=== PATIENT | female | born 1995 | race Caucasian/White ===

== ENCOUNTER 2021-09-30 16:53 | Emergency (ER) | payer OTHER ==
[~2021-09-30] VITALS: Ht 157.5 cm; Wt 57.8 kg
[2021-09-30] MEDS ORDERED: CEFDINIR300 MG PO (17:44)
[2021-09-30] MEDS ORDERED: PREDNISONE20 MG PO (17:44)
== END 2021-09-30 17:46 | disposition home or self-care (01) ==
LOC: FSED 17:41
DX: H66.91 Otitis media, unspecified, right ear (principal)
CPT/HCPCS: 99282

== ENCOUNTER 2021-10-07 11:49 | Emergency (ER) | payer OTHER ==
[~2021-10-07] VITALS: Ht 157.5 cm; Wt 57.6 kg
[~2021-10-07 11:49] MED LIST: CEFDINIR300 MG PO; PREDNISONE20 MG PO
[2021-10-07] MEDS ORDERED: KETOROLAC TROMETHAMINE 60 MG/2 ML VIAL IM ONE (13:15)
[2021-10-07] MEDS ORDERED: KETOROLAC TROMETHAMINE 30 MG/ML VIAL ONE (13:22)
[2021-10-07] MEDS ORDERED: FIORICET 50-301 EACH PO (14:05)
[2021-10-07] MEDS ORDERED: PREDNISONE20 MG PO (14:07)
== END 2021-10-07 14:20 | disposition home or self-care (01) ==
LOC: FSED 12:02
DX: H92.01 Otalgia, right ear (principal); H69.91 Unspecified Eustachian tube disorder, right ear; R04.0 Epistaxis; R51.9 Headache, unspecified
CPT/HCPCS: 70486; 81025; 99283; J1885